=== PATIENT | female | born 1990 | race Hispanic/Latino ===

== ENCOUNTER 2016-10-23 17:51 | Emergency (ER) | payer SELFPAY ==
[2016-10-23 20:41] LABS: Bilirubin,Urine NEG (Negative); Blood,Urine NEG (Negative); Ketones,Urine TR mg/dL (Negative); Leukocyte Esterase,Urine NEG (Negative); Mucus,Urine 3+ /HPF; Nitrite,Urine NEG (Negative); Protein,Urine <15 mg/dL mg/dL (Negative); Urobilinogen,Urine < 2.0 mg/dL (<2.0)
[2016-10-23 20:48] LABS: Basophils % (Auto) 0.2 % (0.0-1.8); Eosinophils % (Auto) 1.9 % (0.0-4.3); Hematocrit 44.3 % (30.3-42.9); Hemoglobin 14.3 gm/dl (10.1-14.3); Mean Corpuscular HGB Conc 32 % (30-34); Mean Corpuscular Hemoglobin 27 pg (28-32); Mean Corpuscular Volume 85 fl (79-97); Platelet Count 258 K/mm3 (140-440); Red Blood Count 5.22 M/mm3 (3.65-5.03); Red Cell Distribution Width 13.4 % (13.2-15.2); White Blood Count 12.6 K/mm3 (4.5-11.0)
--- NOTE | 2016-10-23 21:23 | Emergency Department Report ---
HPI - General Chief Complaint: Vaginal Bleeding Time Seen by Provider: 10/23/16 20:49 - HPI HPI: This is a 26-year-old female presents to the emergency department for an evaluation of possible . The patient says that she's been having some left lower quadrant abdominal discomfort, some mild vaginal bleeding and some vaginal discharge. The patient took a test yesterday and it came back positive. With this the patient would be with one live child, one previous miscarriage and one previous ectopic . The patient does not have a primary care doctor or [facility] as she just moved here from [place]. She says she has been dealing with a yeast infection as well and took some Monistat but has not improved. She is unsure of her last menstrual cycle. She also says that she has a history of Rh- blood. She is not taken anything for symptoms prior to presentation. ED Past Medical Hx - Past Medical History Previous Medical History?: Yes Additional medical history: Miscarriage, RH negative - Surgical History Past Surgical History?: Yes Additional Surgical History: Miscarriage - Social History Smoking Status: Current Every Day Smoker Substance Use Type: Alcohol, Marijuana ED Review of Systems ROS: Stated complaint: AND BLEEDING,RH NEG 2 Other details as noted in HPI Comment: All other systems reviewed and negative Constitutional: denies: chills, fever Eyes: denies: eye pain, eye discharge, vision change ENT: denies: ear pain, throat pain Respiratory: denies: cough, shortness of breath, wheezing Cardiovascular: denies: chest pain, palpitations Gastrointestinal: abdominal pain, nausea Genitourinary: discharge, other (vag bleed). denies: dysuria Musculoskeletal: denies: back pain, joint swelling, arthralgia Skin: denies: rash, lesions Neurological: denies: headache, weakness, paresthesias Physical Exam - Physical Exam Vital Signs: Vital Signs 10/23/16 18:00 Temperature 98.2 F Pulse Rate 73 Respiratory 20 Rate Blood Pressure 114/70 O2 Sat by Pulse 100 Oximetry Physical Exam: GENERAL: The patient is well-developed well-nourished. HEENT: Normocephalic. Atraumatic. Extraocular motions are intact. Patient has moist mucous membranes. Pupils equal reactive to light bilaterally. NECK: Supple. Trachea is midline. CHEST/LUNGS: Clear to auscultation. There is no respiratory distress noted. HEART/CARDIOVASCULAR: Regular. There is no tachycardia. There is no gallop rub or murmur. ABDOMEN: Abdomen is soft. No tenderness to palpation of the abdomen. No guarding rebound tenderness. Patient has normal bowel sounds. There is no abdominal distention. SKIN: Skin is warm and dry. NEURO: The patient is awake, alert, and oriented. The patient is cooperative. The patient has no focal neurologic deficits. The patient has normal speech. MUSCULOSKELETAL: There is no tenderness or deformity. There is no limitation range of motion. There is no evidence of acute injury. ED Course Vital Signs 10/23/16 18:00 Temperature 98.2 F Pulse Rate 73 Respiratory 20 Rate Blood Pressure 114/70 O2 Sat by Pulse 100 Oximetry ED Medical Decision Making - Lab Data Result diagrams: 10/23/16 20:14 - Radiology Data Radiology results: report reviewed Transvaginal/ ultrasound shows a single live intrauterine at approximately 6 weeks and 1 day. - Medical Decision Making 26-year-old female presents to the emergency department with complaint of some lower abdominal discomfort, vaginal discharge and some light vaginal bleeding and finding out she was yesterday by home test. Patient's labs are mostly unremarkable. She has a healthy appearing quantitative beta hCG. Ultrasound was done that shows a live intrauterine at about 6 weeks. Patient is RhoGAM antibody negative. I spoke with the [facility] on-call who recommends the RhoGAM shot, so this was given. On pelvic exam, there was some non-malodorous thin white discharge seen but no current bleeding and the cervical os appears closed. Patient says that she has some history of unprotected sex so she was treated for possible gonorrhea and chlamydia with 2 g of azithromycin. Wet prep sent and was negative for trichomoniasis and BV. Vital signs stable throughout her ED course. Patient appears safe for discharge home at this time. She was given referrals for multiple [facility] groups. She already is taking vitamins and has them at home. She will return to the ER with any worsening of her symptoms or any acute distress. - Differential Diagnosis , threatened miscarriage, spontaneous miscarriage, fibroids, UTI Critical Care Time: No Critical care attestation.: If time is entered above; I have spent that time in minutes in the direct care of this critically ill patient, excluding procedure time. ED Disposition Clinical Impression: Vaginal discharge, Threatened miscarriage Qualifiers: Weeks of gestation: less than 8 weeks Qualified Code(s): Z3A.01 - Less than 8 weeks gestation of Abdominal pain Qualifiers: Abdominal location: lower abdomen, unspecified Qualified Code(s): R10.30 - Lower abdominal pain, unspecified Disposition: DISCHARGED TO HOME OR SELFCARE Is pt being admited?: No Condition: Stable Instructions: Threatened Miscarriage (ED), (ED) Additional Instructions: Please follow-up with a [facility] in the next few days. Return to the emergency department with any worsening of her symptoms or any acute distress. Continue taking the vitamins. Referrals: PRIMARY CAREMD [Primary Care Provider] - 3-5 Days ANNMARIE YIN MD [Staff Physician] - 3-5 Days [facility] [Provider Group] - 3-5 Days [facility] [Provider Group] - 3-5 Days Time of Disposition: 00:28
--- NOTE | 2016-10-23 22:37 | Ultrasound Report ---
FINAL REPORT PROCEDURE: US OB \T\lt; = 14 WEEKS FETUS TECHNIQUE: Real-time transabdominal and transvaginal sonography of the uterus, placenta, amniotic fluid, adnexa, and fetus was performed with image documentation. Measurements were obtained to determine age/size. M-mode Doppler was used to document heartbeat. CPT 91150 and 96781 HISTORY: vag bleeding, preg COMPARISON: No prior studies are available for comparison. FINDINGS: ADDITIONAL GESTATION: None. CRL: 4.4 mm, which corresponds to a gestational age of: 6 weeks, 1 days. Yolk Sac: Normal. Embryonic Cardiac Activity: 127 beats per minute Gestational Sac: Normal. Amniotic fluid: Normal. Cervix: 5.0 centimeters in length Right Ovary: Normal. Left Ovary: Normal. Estimated delivery date: 06/17/2017 Uterus and adnexa: Normal. IMPRESSION: 1. Single live intrauterine gestation at approximately 6 weeks, 1 days. 2. EDC by US 06/17/2017 3. Complete anatomic survey at 18-20 weeks suggested. PROCEDURE: TECHNIQUE: HISTORY: COMPARISON: FINDINGS: IMPRESSION:
--- NOTE | 2016-10-23 22:37 | Ultrasound Report ---
FINAL REPORT PROCEDURE: US OB \T\lt; = 14 WEEKS FETUS TECHNIQUE: Real-time transabdominal and transvaginal sonography of the uterus, placenta, amniotic fluid, adnexa, and fetus was performed with image documentation. Measurements were obtained to determine age/size. M-mode Doppler was used to document heartbeat. CPT 24054 and 38663 HISTORY: vag bleeding, preg COMPARISON: No prior studies are available for comparison. FINDINGS: ADDITIONAL GESTATION: None. CRL: 4.4 mm, which corresponds to a gestational age of: 6 weeks, 1 days. Yolk Sac: Normal. Embryonic Cardiac Activity: 127 beats per minute Gestational Sac: Normal. Amniotic fluid: Normal. Cervix: 5.0 centimeters in length Right Ovary: Normal. Left Ovary: Normal. Estimated delivery date: 06/17/2017 Uterus and adnexa: Normal. IMPRESSION: 1. Single live intrauterine gestation at approximately 6 weeks, 1 days. 2. EDC by US 06/17/2017 3. Complete anatomic survey at 18-20 weeks suggested.
[2016-10-23] MEDS ORDERED: ZITHROMAX PO ONE (22:44)
[2016-10-24 00:40] VITALS: BP 118/74
== END 2016-10-24 00:40 | disposition home or self-care (01) ==
LOC: ED 17:51
DX: O20.0 Threatened abortion (principal); R10.30 Lower abdominal pain, unspecified; F17.200 Nicotine dependence, unspecified, uncomplicated; F12.90 Cannabis use, unspecified, uncomplicated; Z3A.01 Less than 8 weeks gestation of pregnancy
CPT/HCPCS: 36415; 76801; 76817; 81001; 84702; 85025; 86850; 86900; 86901; 87210; 99284; J2790; 96372